=== PATIENT | female | born 1970 | race Two or more races ===

== ENCOUNTER 2017-09-07 16:11 | Inpatient (IN) | payer MEDICAID ==
[~2017-09-07] VITALS: Ht 152.4 cm; Wt 73.4 kg
[2017-09-07 16:59] LABS: Basophils # (auto) 0 uL; Basophils % (auto) 0.4 % (0.0-2.0); Eosinophils # (auto) 0.1 uL; Eosinophils % (auto) 1.2 % (0.0-7.0); Hematocrit 45.8 % (36.0-46.0); Hemoglobin 15.4 g/dL (12.2-16.2); Lymphocytes # (auto) 1.4 uL; Lymphocytes % (auto) 13.1 % (10.0-50.0); Mean Corpuscular Hemoglobin 31.6 pg (28.0-32.0); Mean Corpuscular Hgb Conc. 33.6 g/dL (32.0-36.0); Mean Corpuscular Volume 93.9 fL (80.0-100.0); Monocytes # (auto) 0.4 uL; Monocytes % (auto) 4.2 % (0.0-12.0); Neutrophils # (auto) 8.4 uL; Neutrophils % (auto) 81.1 % (37.0-80.0); Nucleated Red Blood Cells % 0.1 %; Platelet Count (auto) 317 10^3/uL (140-450); Red Blood Cells 4.88 10^6/uL (4.0-5.20); Red Cell Distribution Width 13.3 % (11.8-14.3); White Blood Cell 10.4 10^3/uL (4.4-10.8)
[2017-09-07] MEDS ORDERED: SODIUM CHLORIDE 0.9% 1,000 ML IVB ONE (17:08)
[2017-09-07] MEDS ORDERED: cefTRIAXone 1GM/10ml IVPUSH 10 ML IV ONE (17:15)
[2017-09-07 17:19] LABS: Albumin 4.3 g/dL (3.4-5.0); BUN/Creatinine Ratio 14.8; Bilirubin, Total 0.5 mg/dL (0.2-1.0); Calcium 9.4 mg/dL (8.5-10.1); Potassium 3.2 mmol/L (3.5-5.1); Total Protein 9.4 g/dL (6.4-8.2)
[2017-09-07 18:27] LABS: Lactic Acid w/Reflex 2.3 mmol/L (0.4-2.0)
[2017-09-07 20:31] LABS: Urine Bacteria FEW /hpf (None Seen); Urine Blood 3+ /uL (Negative); Urine Mucus FEW (None Seen); Urine Specific Gravity 1.027 (1.001-1.035); Urine WBC 6 /hpf (0 - 5)
[2017-09-07] MEDS ORDERED: TETANUS-DIPTH-ACEL PERTUSSIS 0.5ML SYRG IM ONE (21:00)
[2017-09-07 21:04] LABS: Alcohol, Urine < 3.0 mg/dL (0-5); Amphetamine Screen, Urine POSITIVE (NEGATIVE); Barbiturate Scree,Urine NEGATIVE (NEGATIVE); Benzodiazephine Screen, Urine NEGATIVE (NEGATIVE); Cannabinoid Screen, Urine NEGATIVE (NEGATIVE); Cocaine Screen, Urine NEGATIVE (NEGATIVE); Opiate Scree,Urine NEGATIVE (NEGATIVE); Phencyclidine Screen, Urine NEGATIVE (NEGATIVE)
[2017-09-07] MEDS: CLINDAMYCIN 600MG IV 50 ML IV SCH (22:00)
[2017-09-07] MEDS ORDERED: ONDANSETRON HCL 4 MG/2 ML VIAL IV PRN (22:00)
[2017-09-07] MEDS: FAMOTIDINE 20 MG TAB PO SCH (22:00)
[2017-09-07] MEDS ORDERED: POTASSIUM CHL 20 Meq TABLET PO ONE ×2 (22:00→22:45)
[2017-09-07] MEDS ORDERED: HYDROcodone-ACET 5/325MG TAB PO PRN (22:00)
[2017-09-07] MEDS ORDERED: ACETAMINOPHEN 325 MG TAB PO PRN (22:00)
[2017-09-07] MEDS ORDERED: TEMAZEPAM 15 MG CAP PO PRN (22:00)
[2017-09-07 22:50] VITALS: BP 140/73
[2017-09-08] VITALS (7 sets, daily range): BP systolic 113–136; BP diastolic 53–88
[2017-09-08] MEDS: CLINDAMYCIN 600MG IV 50 ML IV SCH ×3 (05:39→21:46)
[2017-09-08 05:56] LABS: Basophils # (auto) 0 uL; Basophils % (auto) 0.3 % (0.0-2.0); Eosinophils # (auto) 0.3 uL; Eosinophils % (auto) 3.2 % (0.0-7.0); Hemoglobin 12.8 g/dL (12.2-16.2); Lymphocytes # (auto) 1.9 uL; Lymphocytes % (auto) 22.1 % (10.0-50.0); Mean Corpuscular Hemoglobin 31.4 pg (28.0-32.0); Mean Corpuscular Hgb Conc. 32.9 g/dL (32.0-36.0); Mean Corpuscular Volume 95.5 fL (80.0-100.0); Monocytes # (auto) 0.6 uL; Monocytes % (auto) 6.8 % (0.0-12.0); Neutrophils % (auto) 67.6 % (37.0-80.0); Platelet Count (auto) 243 10^3/uL (140-450); Red Blood Cells 4.08 10^6/uL (4.0-5.20); Red Cell Distribution Width 13.1 % (11.8-14.3); White Blood Cell 8.8 10^3/uL (4.4-10.8)
[2017-09-08 06:12] LABS: BUN/Creatinine Ratio 16.1; Bilirubin, Total 0.2 mg/dL (0.2-1.0); Calcium 8.4 mg/dL (8.5-10.1); Potassium 3.7 mmol/L (3.5-5.1); Total Protein 6.6 g/dL (6.4-8.2)
[2017-09-08] MEDS: FAMOTIDINE 20 MG TAB PO SCH ×2 (08:57→21:46)
[2017-09-08] MEDS: cefTRIAXone 1GM/10ml IVPUSH 10 ML IV SCH (08:57)
[2017-09-08] MEDS: ENOXAPARIN SOD 40 MG/0.4 ML SYRINGE SC SCH (08:57)
[2017-09-09] VITALS (7 sets, daily range): BP systolic 104–117; BP diastolic 52–70
[2017-09-09] MEDS: CLINDAMYCIN 600MG IV 50 ML IV SCH ×3 (05:42→21:07)
[2017-09-09] MEDS: FAMOTIDINE 20 MG TAB PO SCH ×2 (09:09→21:07)
[2017-09-09] MEDS: ENOXAPARIN SOD 40 MG/0.4 ML SYRINGE SC SCH (09:09)
[2017-09-09] MEDS: cefTRIAXone 1GM/10ml IVPUSH 10 ML IV SCH (09:09)
[2017-09-10 05:33] VITALS: BP 125/81
[2017-09-10] MEDS: CLINDAMYCIN 600MG IV 50 ML IV SCH ×2 (06:09→13:21)
[2017-09-10 08:00] VITALS: BP 111/67
[2017-09-10] MEDS: FAMOTIDINE 20 MG TAB PO SCH (08:45)
[2017-09-10] MEDS: ENOXAPARIN SOD 40 MG/0.4 ML SYRINGE SC SCH (08:45)
[2017-09-10] MEDS: cefTRIAXone 1GM/10ml IVPUSH 10 ML IV SCH (08:45)
[2017-09-10 13:08] VITALS: BP 101/61
[2017-09-10] MEDS ORDERED: SACC250C PO (14:37)
[2017-09-10] MEDS ORDERED: CLIN1CAP4 PO (14:37)
[2017-09-10 15:57] VITALS: BP 101/61
== END 2017-09-10 16:45 | disposition home or self-care (01) | DRG 463 ==
LOC: ER 16:11 → OVERFLOW 16:12 → WEST WING 22:50
PROVIDERS: ADMIT Nurse Practitioner; ATTEND Internal Medicine
DX: N39.0 Urinary tract infection, site not specified (principal); L03.116 Cellulitis of left lower limb; E66.9 Obesity, unspecified; E87.6 Hypokalemia; F15.10 Other stimulant abuse, uncomplicated; Z68.31 Body mass index [BMI] 31.0-31.9, adult
CPT/HCPCS: 36415; 73630; 80053; 80307; 81001; 83605; 85025; 87040; 87086; 90715; 94761; 96361; 96372; 96374; J3490

== ENCOUNTER 2020-10-15 14:48 | Emergency (ER) | payer MEDICAID ==
[~2020-10-15] VITALS: Ht 152.4 cm; Wt 72.6 kg
[~2020-10-15 14:48] MED LIST: CLIN300C8 PO; SACC250C PO
[2020-10-15 17:21] LABS: Basophils # (auto) 0 10 ^3/uL (0-0.2); Basophils % (auto) 0.7 % (0.0-2.0); Eosinophils # (auto) 0.4 10 ^3/uL (0-0.8); Eosinophils % (auto) 6.3 % (0.0-7.0); Hematocrit 42.8 % (36.0-46.0); Lymphocytes # (auto) 2.3 10 ^3/uL (0.4-5.4); Lymphocytes % (auto) 39.6 % (10.0-50.0); Mean Corpuscular Hemoglobin 31.6 pg (28.0-32.0); Mean Corpuscular Hgb Conc. 35.1 g/dL (32.0-36.0); Monocytes # (auto) 0.3 10 ^3/uL (0-1.3); Monocytes % (auto) 5.4 % (0.0-12.0); Neutrophils # (auto) 2.8 10 ^3/uL (1.6-8.6); Red Blood Cells 4.75 10^6/uL (4.0-5.20); Red Cell Distribution Width 13.6 % (11.8-14.3); White Blood Cell 5.8 10^3/uL (4.4-10.8)
[2020-10-15 17:40] LABS: Chloride 106 mmol/L (98-107); Potassium 3.6 mmol/L (3.5-5.1); Sodium 137 mmol/L (136-145)
[2020-10-15 17:54] LABS: Alanine Aminotransferase 36 U/L (13-56); Albumin 4.2 g/dL (3.4-5.0); Alkaline Phosphatase 133 U/L (45-117); Amylase 53 U/L (25-115); Anion Gap 4 (5-15); Aspartate Aminotransferase 26 U/L (15-37); BUN/Creatinine Ratio 17.2; Bilirubin, Total 0.3 mg/dL (0.2-1.0); Blood Urea Nitrogen 11 mg/dL (7-18); Calcium 8.9 mg/dL (8.5-10.1); Carbon Dioxide 27 mmol/L (21-32); GFR African American 126 mL/min; GFR Non-African American 104 mL/min; Glucose 111 mg/dL (74-106); Lipase 125 U/L (73-393); Magnesium 2.1 mg/dL (1.6-2.6); Total Protein 7.4 g/dL (6.4-8.2)
[2020-10-15 18:05] LABS: Urine Bacteria NONE SEEN /hpf (None Seen); Urine Blood Negative /uL (Negative); Urine Specific Gravity 1.017 (1.001-1.035); Urine WBC 5 /hpf (0 - 5)
[2020-10-15 22:02] VITALS: BP 152/81
[2020-10-15] MEDS ORDERED: HYDROcodone-ACET 5/325MG TAB PO ONE (22:15)
[2020-10-15] MEDS ORDERED: ONDANSETRON ODT 4 MG TAB PO ONE (22:15)
== END 2020-10-16 05:15 | disposition home or self-care (01) ==
LOC: ER 14:48
DX: R10.11 Right upper quadrant pain (principal); R10.12 Left upper quadrant pain; R19.7 Diarrhea, unspecified; Z90.49 Acquired absence of other specified parts of digestive tract; Z98.51 Tubal ligation status; Z79.899 Other long term (current) drug therapy
CPT/HCPCS: 36415; 74176; 80053; 81001; 82150; 83690; 83735; 84484; 85025; 85049; 93005; 99285; Q0162

== ENCOUNTER 2025-01-21 22:43 | Emergency (ER) | payer SELFPAY ==
[~2025-01-21] VITALS: Ht 152.4 cm; Wt 81.8 kg
[~2025-01-21 22:43] MED LIST changes: +CLIN1CAP70 PO; -CLIN300C8 PO
--- NOTE | 2025-01-22 00:05 | DVH ---
CHEST RADIOGRAPH Indication: COUGH Technique: 1 view Comparison: None FINDINGS: Lines and Tubes: None. Lungs/Pleura: No focal consolidation, pleural effusion or pneumothorax. Cardiomediastinum: Unremarkable. Other: No acute osseous abnormality. IMPRESSION: 1. No acute cardiopulmonary abnormality.
[2025-01-22 00:12] LABS: Hematocrit 43.9 % (36.0-46.0); Hemoglobin 15.0 g/dL (12.2-16.2); Mean Corpuscular Hemoglobin 30.1 pg (28.0-32.0); Mean Corpuscular Volume 88.0 fL (80.0-100.0); Nucleated Red Blood Cells % 0.1 %
--- NOTE | 2025-01-22 00:13 | DVH ---
Exam: CT CT AB PEL WO CON-NO ORAL OR IV History: ABD PAIN Comparison Study: CT ABD PELVIS WO CONTRAST on DOS: 10/15/20 Technique: Multidetector spiral CT of the abdomen was performed from lung bases to pubic symphysis. I maging was performed without IV contrast. Axial, coronal and sagittal multiplanar reformats were obta ined from the axial data set by the technologist. Radiation Dose : 1. Abdomen/Pelvis: CTDIvol 18.12 mGy, DLP 953.85 mGy*cm. Findings: Evaluation of solid organs is limited due to lack of intravenous contrast use. Lower Chest: No acute findings. Liver: Diffuse hypoattenuation. Previous tiny cyst at the dome no longer visualized. Gallbladder and Biliary Tree: Cholecystectomy change. Pancreas: Unremarkable. Spleen: Unremarkable. Adrenal Glands: Unremarkable. Kidneys/Ureters: No urinary stone or obstruction. Bladder: Grossly unremarkable for degree of distention. Pelvic Organs: Bilateral tubal occlusion clips, otherwise unremarkable. Bowel: Normal caliber without wall thickening. Normal appendix. Few colonic diverticula without dive rticulitis. Vasculature: Unremarkable. Lymphadenopathy: No obvious adenopathy. Peritoneum: No ascites, free air, or fluid collection. Abdominal Wall: No significant hernia. Musculoskeletal: No acute abnormality. Multilevel spondylosis. IMPRESSION: 1. No acute abdominopelvic abnormality, evidence of urinary stone or obstruction. 2. Chronic and incidental findings without significant change from 2020 as above. Radiation optimization: All CT scans at this facility use at least one of these dose optimization sienna hniques: automated exposure control mA and/or kV adjustment per patient size (includes targeted exam s where dose is matched to clinical indication) or iterative reconstruction.
[2025-01-22 00:30] LABS: Anion Gap 13 (5-15); BUN/Creatinine Ratio 15.5 (10.0-20.0); Blood Urea Nitrogen 11 mg/dL (9-23); Calcium 10.2 mg/dL (8.7-10.4); Carbon Dioxide 25 mmol/L (20-31); Chloride 103 mmol/L (98-107); Glucose 95 mg/dL (74-106); Lipase 49 U/L (12-53); Potassium 3.9 mmol/L (3.5-5.1); Sodium 141 mmol/L (136-145)
[2025-01-22 00:32] LABS: Alanine Aminotransferase 62 U/L (7-40); Albumin 5.1 g/dL (3.2-4.8); Alkaline Phosphatase 157 U/L (46-116); Bilirubin, Total 0.3 mg/dL (0.2-1.0); Total Protein 8.2 g/dL (5.7-8.2)
[2025-01-22 01:36] VITALS: BP 161/78; PULSE 73; RESP 16; TEMP 98.4; O2SAT 96
[2025-01-22] MEDS: LIDOCAINE VISCOUS 2% 15ML UD MT ONE (01:41)
[2025-01-22] MEDS: MAALOX PLUS or MAALOX 30 ML PO ONE (01:41)
--- NOTE | 2025-01-22 01:55 | ED.PDOC ---
GI ASSESSMENT HPI Comments Patient complaining of mild stomach discomfort for the last 4-5 days. States today she started having more intense pain. States she had a bowel movement that there was overly, dark, not normal. Patient reports does not have a prior history of liver issues. States she has not followed up. States she recently came back from [facility] two months ago. States since then she has been having chronic congestion and cough. She also states she has been having some acid reflux. Says she has been more gassy and feels very bloated. No new foods no new medications. Chief Complaint: Abdominal Pain Time Seen by MD: 22:55 Primary Care Provider: KRISTIN Reviewed Notes: Nurses Notes Allergies: Coded Allergies: No Known Drug Allergy (Verified Allergy, Unknown, 09/07/17) Home Meds Active Scripts Yeast (S. Boulardii)(S. Cerevi (Florastor) 250 Mg Cap, 250 MG PO DAILY, #10 CAP Prov:CARL PINON MD 09/10/17 Clindamycin Hcl (Clindamycin Hcl) 300 Mg Cap, 1 CAP PO TID, #30 CAP Prov:CARL PINON MD 09/10/17 Information Source: Patient Mode of Arrival: Ambulatory Past Medical History PAST MEDICAL HISTORY: Denies Surgical History: BTL, Cholecystectomy HEAD OF MUSIC History: Denies all HEAD OF MUSIC Hx Family History Family History: No family hx of HTN Social History Smoker: Non-Smoker Alcohol: Denies ETOH Use Drugs: Denies Drug Use Lives In: Home Constitutional: denies: chills, diaphoresis, fatigue, fever, malaise, sweats, weakness, others EENTM: denies: blurred vision, double vision, ear bleeding, ear discharge, ear drainage, ear pain, ear ringing, eye pain, eye redness, hearing loss, mouth pain, mouth swelling, nasal discharge, nose bleeding, nose congestion, nose pain, photophobia, tearing, throat pain, throat swelling, voice changes, others Respiratory: denies: cough, hemoptysis, orthopnea, SOB at rest, shortness of breath, SOB with excertion, stridor, wheezing, others Cardiovascular: denies: chest pain, dizzy spells, diaphoresis, Dyspnea on exertion, edema, irregular heart beat, left arm pain, lightheadedness, palpitations, PND, syncope, others Gastrointestinal: denies: abdomen distended, abdominal pain, blood streaked bowels, constipated, diarrhea, dysphagia, difficulty swallowing, hematemesis, melena, nausea, poor appetite, poor fluid intake, rectal bleeding, rectal pain, vomiting, others Genitourinary: denies: abnormal vagina bleeding, burning, dyspareunia, dysuria, flank pain, frequency, hematuria, incontinence, pain, , vagina discha rge, urgency, others Neurological: denies: dizziness, fainting, headache, left sided numbness, left sided weakness, numbness, paresthesia, pre-existing deficit, right sided numbness, right sided weakness, seizure, speech problems, tingling, tremors, weakness, others Musculoskeletal: denies: back pain, gout, joint pain, joint swelling, muscle pain, muscle stiffness, neck pain, others Integumetry: denies: bruises, change in color, change in hair/nails, dryness, laceration, lesions, lumps, rash, wounds, others Physical Exam General Appearance: No Apparent Distress, Normal HEENT: Normal ENT Inspection, Pharynx Normal, TMs Normal Neck: Full Range of Motion, Non-Tender, Normal, Normal Inspection Respiratory: Chest Non-Tender, Lungs Clear, No Accessory Muscle Use, No Respiratory Distress, Normal Breath Sounds Cardiovascular: No Edema, No JVD, No Murmur, No Gallop, Normal Peripheral Pulses, Regular Rate/Rhythm Breast Exam: Deferred Gastrointestinal: Distended, No Organomegaly, Normal Bowel Sounds, Soft Genitalia: Deferred Pelvic: Deferred Rectal: Deferred Extremities: No calf tenderness, Normal capillary refill, Normal inspection, Normal range of motion, Non-tender, No pedal edema Musculoskeletal : Apperance: Normal Neurologic: Alert, elevator constructor helper II-XII nml as Tested, No Motor Deficits, Normal Affect, Normal Mood, No Sensory Deficits Cerebellar Function: Normal Reflexes: Normal Skin: Dry, Normal Color, Warm Lymphatic: No Adenopathy Was a procedure done? Was a procedure done?: No GI differential Dx Differential Diagnosis: Gastritis/PUD, Gastroenteritis, GI hemorrhage, Hernia X-Ray, Labs, Meds, VS Vital Signs Date Time Temp Pulse Resp B/P (MAP) Pulse Ox O2 Delivery O2 Flow Rate FiO2 01/22/25 01:44 Room Air* 0 21 01/22/25 01:36 98.4 73 16 161/78 (105) 96 98.4 01/21/25 22:47 97.8 84 18 169/91 98 97.8 Lab Test 01/21/25 23:50 Range/Units White Blood Count 8.7 4.4-10.8 10^3/uL Red Blood Count 4.98 4.0-5.20 10^6/uL Hemoglobin 15.0 12.2-16.2 g/dL Hematocrit 43.9 36.0-46.0 % Mean Corpuscular Volume 88.0 80.0-100.0 fL Mean Corpuscular Hemoglobin 30.1 28.0-32.0 pg Mean Corpuscular Hemoglobin Concent 34.2 32.0-36.0 g/dL Red Cell Distribution Width 13.0 11.8-14.3 % Platelet Count 331 140-450 10^3/uL Mean Platelet Volume 7.2 6.9-10.8 fL Neutrophils (%) (Auto) 58.1 37.0-80.0 % Lymphocytes (%) (Auto) 32.2 10.0-50.0 % Monocytes (%) (Auto) 5.2 0.0-12.0 % Eosinophils (%) (Auto) 3.9 0.0-7.0 % Basophils (%) (Auto) 0.6 0.0-2.0 % Neutrophils # (Auto) 5.0 1.6-8.6 10 ^3/uL Lymphocytes # (Auto) 2.8 0.4-5.4 10 ^3/uL Monocytes # (Auto) 0.5 0-1.3 10 ^3/uL Eosinophils # (Auto) 0.3 0-0.8 10 ^3/uL Basophils # (Auto) 0.1 0-0.2 10 ^3/uL Nucleated Red Blood Cells 0.1 % Sodium Level 141 136-145 mmol/L Potassium Level 3.9 3.5-5.1 mmol/L Chloride Level 103 98-107 mmol/L Carbon Dioxide Level 25 20-31 mmol/L Anion Gap 13 5-15 Blood Urea Nitrogen 11 9-23 mg/dL Creatinine 0.71 0.550-1.02 mg/dL Glomerular Filtration Rate Calc 101 >90 mL/min BUN/Creatinine Ratio 15.5 10.0-20.0 Serum Glucose 95 74-106 mg/dL Calcium Level 10.2 8.7-10.4 mg/dL Total Bilirubin 0.3 0.2-1.0 mg/dL Aspartate Amino Transferase (AST) 50 H 13-40 U/L Alanine Aminotransferase (ALT) 62 H 7-40 U/L Alkaline Phosphatase 157 H 46-116 U/L Total Protein 8.2 5.7-8.2 g/dL Albumin 5.1 H 3.2-4.8 g/dL Lipase 49 12-53 U/L Current Medications Medications (Trade) Dose Ordered Sig/Charlee Route Start Time Stop Time Status Last Admin Lidocaine HCl (Xylocaine 2% Viscous) 5 ml ONCE ONCE MT 01/21/25 23:30 01/21/25 23:34 DC 01/22/25 01:41 Al Hydrox/Mg Hydrox/Simethicone (Maalox Plus) 30 ml ONCE ONCE PO 01/21/25 23:30 01/21/25 23:34 DC 01/22/25 01:41 SEPSIS Sepsis Screen Date sepsis recognized/suspect: Jan 21, 2025 Time Sepsis recognized/suspect: 2249 Recent Procedure: No On Antibiotic Therapy: No Respiratory Rate >20: No Heart Rate >90: No Temp<36 C (96.8 F) or >38.3 C: No SBP <90 or MAP <65 mmHG: No New Acute Mental Status Change: No Is the patient on CPAP, BIPAP,: No Physician Orders Ct Ab Pel Wo Con-No Oral Or Iv (01/21/25 23:30) Urinalysis (01/21/25 23:30) Chest Xray 1 View (01/21/25 23:30) Vital Signs Date Time Temp Pulse Resp B/P (MAP) Pulse Ox O2 Delivery O2 Flow Rate FiO2 01/22/25 01:44 Room Air* 0 21 01/22/25 01:36 98.4 73 16 161/78 (105) 96 98.4 01/21/25 22:47 97.8 84 18 169/91 98 97.8 Laboratory Tests Test 01/21/25 23:50 White Blood Count 8.7 10^3/uL (4.4-10.8) Medications Medications Dose Ordered Sig/Charlee Route Start Time Stop Time Status Last Admin Dose Admin Al Hydrox/Mg Hydrox/Simethicone 30 ml ONCE ONCE PO 01/21/25 23:30 01/21/25 23:34 DC 01/22/25 01:41 Lidocaine HCl 5 ml ONCE ONCE MT 01/21/25 23:30 01/21/25 23:34 DC 01/22/25 01:41 Departure 1 Departure Time of Disposition: 01:58 Impression: Primary Impression: Gastroenteritis Disposition: 01 HOME / SELF CARE / HOMELESS Condition: Fair e-Prescriptions Ondansetron Odt 4MG Tab (ZOFRAN PO) 4 Mg Tb 4 MG PO TID PRN, #20 TAB ODT TAB-DISSOLVE IN MOUTH, THEN SWALLOW Prov: MICHELLE LAI 01/22/25 Omeprazole (Omeprazole Dr) 40 Mg Cap 40 MG PO DAILY for 20 Days, #20 CAP Prov: MICHELLE LAI 01/22/25 Discharged With: Self Critical Care Note Critical Care Time?: No Stability Stability form required: No Heart Score Heart Score: Heart Score Response (Comments) Value History N/A 0 EKG N/A 0 Age N/A 0 Risk Factors N/A 0 Troponin N/A 0 Total 0 MICHELLE LAI Jan 22, 2025 01:55
[2025-01-22] MEDS ORDERED: ZOFR4T PO (01:59)
[2025-01-22] MEDS ORDERED: OMEP-448 PO (01:59)
[2025-01-22 04:19] LABS: Urine Protein, UAD Negative (Negative)
== END 2025-01-22 03:01 | disposition home or self-care (01) ==
LOC: ER 22:43
DX: K52.9 Noninfective gastroenteritis and colitis, unspecified (principal); Z98.51 Tubal ligation status; Z90.49 Acquired absence of other specified parts of digestive tract; Z79.899 Other long term (current) drug therapy
CPT/HCPCS: 36415; 71045; 74176; 80053; 81001; 83690; 85025